=== PATIENT | female | born 1950 | race Hispanic/Latino ===

== ENCOUNTER → 2018-07-04 | Outpatient (CLI) | payer OTHER | END | disposition home or self-care (01) | LOC: OIH 10:53 | PROVIDERS: ATTEND Internal Medicine | DX: M19.042 Primary osteoarthritis, left hand (principal); M19.041 Primary osteoarthritis, right hand | CPT/HCPCS: 73130 ==

== ENCOUNTER → 2019-09-01 | Outpatient (CLI) | payer OTHER | END | disposition home or self-care (01) | LOC: SHCH 14:45 | PROVIDERS: ATTEND Internal Medicine Cardiovascular Disease | DX: I65.23 Occlusion and stenosis of bilateral carotid arteries (principal) | CPT/HCPCS: 93880 ==

== ENCOUNTER → 2019-09-18 | Outpatient (CLI) | payer OTHER | END | disposition home or self-care (01) | LOC: OIH 11:10 | PROVIDERS: ATTEND Internal Medicine Cardiovascular Disease | DX: Z13.6 Encounter for screening for cardiovascular disorders (principal) | CPT/HCPCS: 75571 ==

== ENCOUNTER → 2020-03-16 | Outpatient (CLI) | payer OTHER | END | disposition home or self-care (01) | LOC: RAH 12:05 | PROVIDERS: ATTEND Internal Medicine | DX: Z01.818 Encounter for other preprocedural examination (principal); R05 Cough; R06.02 Shortness of breath | CPT/HCPCS: 71046 ==

== ENCOUNTER → 2020-05-31 | Outpatient (CLI) | payer OTHER | END | disposition home or self-care (01) | LOC: RAH 15:07 | PROVIDERS: ATTEND Internal Medicine | DX: M19.042 Primary osteoarthritis, left hand (principal); M19.041 Primary osteoarthritis, right hand ==

== ENCOUNTER 2022-09-16 15:14 | Emergency (ER) | payer MEDICARE ==
[~2022-09-16] VITALS: Ht 152.4 cm; Wt 72.6 kg
[2022-09-16 15:43] VITALS: BP 197/77
[2022-09-16] MEDS ORDERED: ACET-2079 PO (17:54)
[2022-09-16] MEDS ORDERED: KETOROLAC 60 MG VIAL (30MG/ML) IM ONE (18:00)
[2022-09-16] MEDS ORDERED: HYDROCODONE/ACETAMINOPHEN 5/325 MG TAB PO ONE (18:00)
== END 2022-09-16 18:35 | disposition home or self-care (01) ==
LOC: EDH 15:14
DX: M25.562 Pain in left knee (principal); M25.561 Pain in right knee; E78.00 Pure hypercholesterolemia, unspecified; I10 Essential (primary) hypertension; K21.9 Gastro-esophageal reflux disease without esophagitis; Z79.1 Long term (current) use of non-steroidal anti-inflammatories (NSAID); Z85.3 Personal history of malignant neoplasm of breast
CPT/HCPCS: 99283; 96372; J1885

== ENCOUNTER 2023-02-21 18:06 | Observation (INO) | payer MEDICARE ==
[~2023-02-21] VITALS: Ht 148.6 cm; Wt 71.0 kg
[~2023-02-21 18:06] MED LIST: ACET-2079 PO
[2023-02-21 18:48] LABS: HEMATOCRIT 40.6 % (36-48); MEAN CORPUSCULAR HEMOGLOBIN 32.4 pg (27.0-33.0); MEAN CORPUSCULAR VOLUME 92.7 fL (79-99); RED BLOOD CELL COUNT(AUTO) 4.38 MIL/uL (4.00-5.50); RED CELL DISTRIBUTION WIDTH 12.2 % (11.0-15.5); WHITE BLOOD COUNT (AUTO) 7.2 K/uL (4.8-10.8)
[2023-02-21 19:09] LABS: ALBUMIN 3.9 g/dL (3.5-5.0); BILIRUBIN,TOTAL 0.8 mg/dL (0.2-1.0); CREATININE 1.1 mg/dL (0.5-1.5); TOTAL PROTEIN, SERUM 7.3 g/dL (6.0-8.3)
[2023-02-21 19:11] LABS: POTASSIUM 2.9 mmol/L (3.5-5.1)
[2023-02-21] MEDS ORDERED: POTASSIUM CHLORIDE 20MEQ/10ML 10 MEQ in 0.9%NACL 50ML 50 ML IV SCH (20:00)
[2023-02-21] MEDS ORDERED: KCL 20 MEQ ERTAB PO SCH (20:00)
[2023-02-21] MEDS ORDERED: IOHEXOL-350 75 ML VIAL IV ONE (22:53)
[2023-02-21 23:17] LABS: INR < 0.93 (0.85-1.15); PROTHROMBIN TIME 10.3 SEC (9.6-11.6)
[2023-02-21 23:19] LABS: PARTIAL THROMBOPLASTIN TIME 25.1 SEC (26.3-35.5)
[2023-02-21 23:22] LABS: CREATINE KINASE, TOTAL 137 U/L (21-232); LDL DIRECT 66 mg/dL (0-99)
[2023-02-21] MEDS ORDERED: POTASSIUM CHLORIDE 20MEQ/100ML 100 ML IV ONE (23:23)
[2023-02-22] MEDS ORDERED: POTASSIUM CHLORIDE 20MEQ/100ML 100 ML IV PRN ×2 (01:30→21:30)
[2023-02-22] MEDS ORDERED: MAGNESIUM 2GM PREMIX 50ML 50 ML IV PRN (01:30)
[2023-02-22] MEDS ORDERED: MORPHINE 4 MG SYG IV PRN (01:30)
[2023-02-22] MEDS ORDERED: 0.9%NACL 1000ML 1,000 ML IV SCH (01:30)
[2023-02-22] MEDS ORDERED: ONDANSETRON 4MG INJ IV PRN (01:30)
[2023-02-22] MEDS ORDERED: MORPHINE 2 MG SYG IV PRN (01:30)
[2023-02-22] MEDS ORDERED: HYDRALAZINE 20MG/ML VIAL IV ONE (04:30)
[2023-02-22 06:49] LABS: BASOPHILS # (AUTO) 0.02 K/uL (0.00-0.20); BASOPHILS % (AUTO) 0.4 % (0.0-5.0); EOSINOPHILS # (AUTO) 0.08 K/uL (0.00-0.70); EOSINOPHILS % (AUTO) 1.4 % (0.0-8.0); HEMATOCRIT 39.6 % (36-48); IMMATURE GRANULOCYTE ABSOLUTE 0.02 K/uL (0-1); LYMPHOCYTES # (AUTO) 1.6 K/uL (1.0-4.8); LYMPHOCYTES % (AUTO) 29.3 % (21.0-51.0); MEAN CORPUSCULAR HEMOGLOBIN 31.5 pg (27.0-33.0); MEAN CORPUSCULAR HGB CONC 33.8 g/dL (32.0-36.0); MEAN CORPUSCULAR VOLUME 93.2 fL (79-99); MONOCYTES # (AUTO) 0.6 K/uL (0.1-1.0); MONOCYTES % (AUTO) 10.5 % (3.0-13.0); NEUTROPHILS # (AUTO) 3.2 K/uL (1.8-7.7); PLATELET COUNT (AUTO) 195 K/uL (130-400); RED BLOOD CELL COUNT(AUTO) 4.25 MIL/uL (4.00-5.50); RED CELL DISTRIBUTION WIDTH 12.2 % (11.0-15.5); WHITE BLOOD COUNT (AUTO) 5.5 K/uL (4.8-10.8)
[2023-02-22 07:03] LABS: CREATININE 0.8 mg/dL (0.5-1.5); MAGNESIUM 2.1 mg/dL (1.80-2.40); PHOSPHORUS 3.2 mg/dL (2.5-4.9)
[2023-02-22] MEDS: FAMOTIDINE 20MG VIAL IV SCH (08:33)
[2023-02-22] MEDS: ATORVASTATIN 40 MG TABLET PO SCH (08:33)
[2023-02-22] MEDS: ASPIRIN 81MG CHEW TAB PO SCH (08:33)
[2023-02-22] MEDS ORDERED: NIFEDIPINE ER 30 MG TAB PO SCH (09:00)
[2023-02-22 09:03] LABS: APPEARANCE,URINE CLEAR (CLEAR); BILIRUBIN,URINE NEGATIVE (NEGATIVE); COLOR,URINE COLORLESS (YELLOW); GLUCOSE, URINE (UA) NEGATIVE (NEGATIVE); KETONES,URINE NEGATIVE (NEGATIVE); LEUKOCYTE ESTERASE ,URINE 250 Leu/uL (NEGATIVE); NITRATE,URINE NEGATIVE (NEGATIVE); OCCULT BLOOD,URINE NEGATIVE (NEGATIVE); PROTEIN,URINE NEGATIVE (NEGATIVE); UROBILINOGEN,URINE 0.2 mg/dL (0.2-1.0)
[2023-02-22 09:09] LABS: ADD UA MICROSCOPIC YES
[2023-02-22 09:12] LABS: SQUAMOUS EPITHELIAL CELL,UR RARE /HPF (0-2)
[2023-02-22] MEDS ORDERED: LABETALOL 20MG VIAL IV PRN (19:30)
[2023-02-22] MEDS ORDERED: HYDROCHLOROTHIAZIDE 25 MG TABLET PO SCH (19:30)
[2023-02-22] MEDS: LOSARTAN 25 MG TABLET PO SCH ×2 (20:50→21:00)
[2023-02-22] MEDS: CLOPIDOGREL 75MG TAB PO SCH (20:51)
[2023-02-22] MEDS ORDERED: POTASSIUM CHLORIDE 10% ELIXIR 20 MEQ/15 ML UDCUP PO PRN (21:30)
[2023-02-22 22:00] VITALS: BP 160/72; PULSE 71; RESP 20
[2023-02-22] MEDS ORDERED: FLUT16H NASAL (22:36)
[2023-02-22] MEDS ORDERED: ROSU40TA21 PO (22:36)
[2023-02-22] MEDS ORDERED: CYCL1DRO14 OP (22:36)
[2023-02-22] MEDS ORDERED: ANAS1TAB49 PO (22:36)
[2023-02-22] MEDS ORDERED: OMEP20TA20 PO (22:36)
[2023-02-22] MEDS ORDERED: POTA-364 PO (22:36)
[2023-02-22] MEDS ORDERED: LORA10TA7 PO (22:36)
[2023-02-22] MEDS ORDERED: LOSA25TA41 PO (22:36)
[2023-02-22] MEDS ORDERED: CELE200 PO (22:36)
[2023-02-22] MEDS ORDERED: HYDR25TA PO (22:36)
[2023-02-22] MEDS: KCL 20 MEQ ERTAB PO PRN ×2 (22:39→23:32)
[2023-02-23] MEDS: KCL 20 MEQ ERTAB PO PRN (01:44)
[2023-02-23 03:37] VITALS: BP 133/67; PULSE 72; RESP 16
[2023-02-23 05:17] LABS: BASOPHILS # (AUTO) 0.02 K/uL (0.00-0.20); BASOPHILS % (AUTO) 0.4 % (0.0-5.0); EOSINOPHILS # (AUTO) 0.12 K/uL (0.00-0.70); EOSINOPHILS % (AUTO) 2.4 % (0.0-8.0); HEMATOCRIT 38.9 % (36-48); IMMATURE GRANULOCYTE ABSOLUTE 0.01 K/uL (0-1); LYMPHOCYTES # (AUTO) 1.4 K/uL (1.0-4.8); LYMPHOCYTES % (AUTO) 27.5 % (21.0-51.0); MEAN CORPUSCULAR HEMOGLOBIN 31.6 pg (27.0-33.0); MEAN CORPUSCULAR HGB CONC 33.4 g/dL (32.0-36.0); MEAN CORPUSCULAR VOLUME 94.6 fL (79-99); MONOCYTES # (AUTO) 0.5 K/uL (0.1-1.0); MONOCYTES % (AUTO) 10.5 % (3.0-13.0); PLATELET COUNT (AUTO) 198 K/uL (130-400); RED BLOOD CELL COUNT(AUTO) 4.11 MIL/uL (4.00-5.50); RED CELL DISTRIBUTION WIDTH 12.4 % (11.0-15.5); WHITE BLOOD COUNT (AUTO) 5.1 K/uL (4.8-10.8)
[2023-02-23 05:35] LABS: CREATININE 0.9 mg/dL (0.5-1.5); PHOSPHORUS 3.6 mg/dL (2.5-4.9); POTASSIUM 4.2 mmol/L (3.5-5.1)
[2023-02-23 05:40] LABS: HEMOGLOBIN A1C 6.3 % (4.0-6.0)
[2023-02-23 07:20] VITALS: BP 130/56; PULSE 55; RESP 20
[2023-02-23 08:30] VITALS: O2SAT 100
[2023-02-23] MEDS ORDERED: HYDROCHLOROTHIAZIDE 25 MG TABLET PO SCH (09:00)
[2023-02-23] MEDS ORDERED: ASPI-1005 PO (09:24)
[2023-02-23] MEDS ORDERED: CLOP-31 PO (09:24)
[2023-02-23] MEDS ORDERED: ATOR40TA69 PO (09:24)
[2023-02-23] MEDS ORDERED: FAMO10VI2 IV (09:24)
[2023-02-23] MEDS: CLOPIDOGREL 75MG TAB PO SCH (10:21)
[2023-02-23] MEDS: ATORVASTATIN 40 MG TABLET PO SCH (10:21)
[2023-02-23] MEDS: FAMOTIDINE 20MG VIAL IV SCH (10:21)
[2023-02-23] MEDS: LOSARTAN 25 MG TABLET PO SCH (10:22)
[2023-02-23] MEDS: ASPIRIN 81MG CHEW TAB PO SCH (10:22)
[2023-02-23 11:49] VITALS: BP 150/65; PULSE 60; RESP 20
[2023-02-23 15:10] VITALS: BP 173/64; PULSE 60; RESP 21
[2023-02-23 19:42] VITALS: BP 143/63; PULSE 56; RESP 20
== END 2023-02-23 19:35 | disposition home or self-care (01) ==
LOC: EDH 18:06 → EDHIP 02-22 01:29 → INTOOBSV 02-22 01:29 → 4BH 02-22 22:05
PROVIDERS: ADMIT Internal Medicine; ATTEND Internal Medicine
DX: I63.511 Cerebral infarction due to unspecified occlusion or stenosis of right middle cerebral artery (principal); E87.6 Hypokalemia; I10 Essential (primary) hypertension; E78.5 Hyperlipidemia, unspecified; M19.90 Unspecified osteoarthritis, unspecified site; K21.9 Gastro-esophageal reflux disease without esophagitis; E78.00 Pure hypercholesterolemia, unspecified; F10.10 Alcohol abuse, uncomplicated; E11.9 Type 2 diabetes mellitus without complications; Z85.3 Personal history of malignant neoplasm of breast; Z92.21 Personal history of antineoplastic chemotherapy; Z79.82 Long term (current) use of aspirin; Z79.02 Long term (current) use of antithrombotics/antiplatelets; Z79.899 Other long term (current) drug therapy; Z51.5 Encounter for palliative care
CPT/HCPCS: 96365; 99285; 82550; 83721; 84484 ×2; 80053; 83880; 85027; 85610; 85730; 82948; 36415 ×3; 71045; 70450; 70496; 70498; 93005 ×2; 96361; 96366; 96375; 83735 ×2; 84100 ×2; 84132; 80048 ×2; 85025 ×2; 87088; 81001; 93880; 70551; 92522; 92610; 96376; 83036; 80061; 93306; 93356; 97161; 97116; J3480 ×3; Q9967; J3490 ×2; J7030; J0360; G0378 ×11; 96374; G8980-CI; G8983-CI

== ENCOUNTER 2023-10-10 05:48 | Observation (INO) | payer MEDICARE ==
[2023-10-08 12:42] LABS: BASOPHILS # (AUTO) 0.02 K/uL (0.00-0.20); BASOPHILS % (AUTO) 0.3 % (0.0-5.0); EOSINOPHILS # (AUTO) 0.05 K/uL (0.00-0.70); EOSINOPHILS % (AUTO) 0.7 % (0.0-8.0); HEMATOCRIT 39.3 % (36-48); IMMATURE GRANULOCYTE ABSOLUTE 0.02 K/uL (0-1); LYMPHOCYTES # (AUTO) 1.7 K/uL (1.0-4.8); MEAN CORPUSCULAR HGB CONC 34.4 g/dL (32.0-36.0); MEAN CORPUSCULAR VOLUME 90.1 fL (79-99); MONOCYTES # (AUTO) 0.6 K/uL (0.1-1.0); MONOCYTES % (AUTO) 8.4 % (3.0-13.0); NEUTROPHILS # (AUTO) 4.3 K/uL (1.8-7.7); NEUTROPHILS % (AUTO) 64.3 % (40.0-77.0); PLATELET COUNT (AUTO) 213 K/uL (130-400); RED BLOOD CELL COUNT(AUTO) 4.36 MIL/uL (4.00-5.50); RED CELL DISTRIBUTION WIDTH 13.1 % (11.0-15.5); WHITE BLOOD COUNT (AUTO) 6.7 K/uL (4.8-10.8)
[2023-10-08 12:43] VITALS: BP 189/75; PULSE 65; RESP 18
[2023-10-08 12:49] LABS: ALBUMIN 4.4 g/dL (3.5-5.0); CREATININE 0.9 mg/dL (0.5-1.0); POTASSIUM 3.1 mmol/L (3.5-5.1)
[2023-10-08 12:50] LABS: INR <= 0.93 (0.85-1.15); PROTHROMBIN TIME 10.9 SEC (9.6-11.6)
[2023-10-08 12:52] LABS: PARTIAL THROMBOPLASTIN TIME 28.1 SEC (26.3-35.5)
[2023-10-08 13:14] LABS: APPEARANCE,URINE CLEAR (CLEAR); BILIRUBIN,URINE NEGATIVE (NEGATIVE); COLOR,URINE YELLOW (YELLOW); GLUCOSE, URINE (UA) NEGATIVE (NEGATIVE); KETONES,URINE NEGATIVE (NEGATIVE); LEUKOCYTE ESTERASE ,URINE NEGATIVE Leu/uL (NEGATIVE); NITRATE,URINE NEGATIVE (NEGATIVE); OCCULT BLOOD,URINE TRACE-INTACT (NEGATIVE); PH,URINE 7.5 (5.0-8.0); PROTEIN,URINE TRACE mg/dL (NEGATIVE); UROBILINOGEN,URINE 0.2 mg/dL (0.2-1.0)
[2023-10-08 13:21] LABS: ADD UA MICROSCOPIC NO
[2023-10-08 13:38] LABS: BACTERIA,URINE Rare /HPF (None Seen); SQUAMOUS EPITHELIAL CELL,UR 0-2 /HPF (0-2); WBC,URINE 0-1 /HPF (0-1)
[2023-10-10] VITALS (30 sets, daily range): BP systolic 120–219; BP diastolic 43–88; PULSE 57–81; RESP 11–19; O2SAT 96
[~2023-10-10] VITALS: Ht 149.9 cm; Wt 72.4 kg
[~2023-10-10 05:48] MED LIST changes: -ACET-2079 PO; +ACET-2743 PO; +AMLO-257 PO; +ANAS1TAB49 PO; +CALC-1125 PO; +CHOL200074 PO; +CLOP-31 PO; +GABA-529 PO; +HYPROMELLOSE OU; +MONT-39 PO; +OLME40TA18 PO; +OMEP20TA20 PO; +ROSU40TA21 PO; +TYLENOL ARTHRITIS PO; +VITA-328 PO
[2023-10-10] MEDS ORDERED: LACTATED RINGERS 1000ML 1,000 ML IV ONE (06:23)
[2023-10-10] MEDS ORDERED: FAMOTIDINE 20MG VIAL IV ONE (06:43)
[2023-10-10] MEDS ORDERED: ACETAMINOPHEN 1,000 MG/100 ML VIAL IV ONE (06:43)
[2023-10-10] MEDS ORDERED: ROPIVACAINE 0.5% 5MG/ML 30ML ONE ×2 (06:47→09:42)
[2023-10-10] MEDS ORDERED: LIDOCAINE PF 100MG/5ML (2%) SYRINGE 5ML ONE (06:52)
[2023-10-10] MEDS ORDERED: FENTANYL CITRATE PF 50 MCG/1 ML 2ML VIAL ONE (06:53)
[2023-10-10] MEDS ORDERED: ROCURONIUM BROMIDE 10MG/1ML 5ML VL ONE (06:53)
[2023-10-10] MEDS ORDERED: PROPOFOL 10 MG/ML 20ML VIAL IV ONE (06:53)
[2023-10-10] MEDS: POTASSIUM CHLORIDE 10MEQ/100ML 100 ML IV SCH (07:26)
[2023-10-10] MEDS ORDERED: KETAMINE 50MG/ML SYRINGE 50 MG/ML DISP.SYRIN ONE (09:42)
[2023-10-10] MEDS: CEFAZOLIN SODIUM 2 GM VIAL ONE (10:00)
[2023-10-10] MEDS: KETOROLAC 30MG VIAL (30MG/ML) ONE (10:45)
[2023-10-10] MEDS: ROPIVACAINE 0.5% 5MG/ML 30ML ONE (10:46)
[2023-10-10] MEDS ORDERED: HYDROMORPHONE 1 MG INJ ONE (10:58)
[2023-10-10] MEDS ORDERED: KETOROLAC 15MG/ML VIAL (15MG/ML) IV PRN (12:00)
[2023-10-10] MEDS ORDERED: DiphenhydrAMINE HCL 50 MG/ML VIAL IVP PRN (12:00)
[2023-10-10] MEDS ORDERED: TRAMADOL HCL 50 MG TABLET PO PRN (12:00)
[2023-10-10] MEDS ORDERED: CYCLOBENZAPRINE HCL 10 MG TABLET PO PRN (12:00)
[2023-10-10] MEDS ORDERED: POTASSIUM CHLORIDE 20MEQ/100ML 100 ML IV PRN (12:00)
[2023-10-10] MEDS ORDERED: POTASSIUM CHLORIDE 10% ELIXIR 20 MEQ/15 ML UDCUP PO PRN (12:00)
[2023-10-10] MEDS ORDERED: FERROUS FUMARATE 324 MG TABLET PO PRN (12:00)
[2023-10-10] MEDS ORDERED: LABETALOL 20MG SYG IV PRN (13:30)
[2023-10-10] MEDS ORDERED: HYDRALAZINE 20MG/ML VIAL IV PRN (13:30)
[2023-10-10] MEDS: ONDANSETRON 4MG INJ ONE (13:35)
[2023-10-10] MEDS: HYDRALAZINE 20MG/ML VIAL ONE (13:35)
[2023-10-10] MEDS: HYDROMORPHONE 1 MG INJ ONE (13:36)
[2023-10-10] MEDS: ONDANSETRON 4MG INJ IVP PRN (14:40)
[2023-10-10] MEDS ORDERED: ONDANSETRON 4MG INJ IVP PRN (15:00)
[2023-10-10] MEDS: METOCLOPRAMIDE 10 MG/2 ML VIAL ONE (15:03)
[2023-10-10] MEDS: FAMOTIDINE 20MG VIAL IV ONE (15:03)
[2023-10-10] MEDS: TRAMADOL HCL 50 MG TABLET ONE (16:03)
[2023-10-10] MEDS: PROMETHAZINE HCL 25 MG/ML 1ML AMPULE IM ONE (16:04)
[2023-10-10 17:05] LABS: ALBUMIN 3.5 g/dL (3.5-5.0); CREATININE 0.9 mg/dL (0.5-1.0); POTASSIUM 3.1 mmol/L (3.5-5.1)
[2023-10-10 17:18] LABS: BILIRUBIN,TOTAL 0.9 mg/dL (0.2-1.0); MAGNESIUM 1.9 mg/dL (1.80-2.40); THYROID STIMULATING HORMONE 0.57 uIU/mL (0.36-3.74); TOTAL PROTEIN, SERUM 6.6 g/dL (6.0-8.3)
[2023-10-10] MEDS: CEFAZOLIN SODIUM 2 GM VIAL IVPB SCH (18:45)
[2023-10-10] MEDS: KCL 20 MEQ ERTAB PO PRN (20:40)
[2023-10-10] MEDS: ATORVASTATIN 40 MG TABLET PO SCH (20:42)
[2023-10-10] MEDS: DOCUSATE SODIUM 100 MG CAP PO SCH (20:43)
[2023-10-10] MEDS: AMLODIPINE 5 MG TAB PO SCH (20:43)
[2023-10-10] MEDS: GABAPENTIN 100 MG CAPSULE PO SCH (20:43)
[2023-10-10] MEDS: KETOROLAC 15MG/ML VIAL (15MG/ML) IV SCH (20:44)
[2023-10-10] MEDS: 0.9%NACL 1000ML 1,000 ML IV SCH (20:45)
[2023-10-10] MEDS: Vitamin D3 50 MCG PO SCH (21:00)
[2023-10-10] MEDS ORDERED: NON-FORMULARY MEDICATION 1 EACH (Rosuvastatin Calcium 40 MG) PO SCH (21:00)
[2023-10-11] MEDS: MAGNESIUM 2GM PREMIX 50ML 50 ML IV SCH (03:38)
[2023-10-11 04:01] VITALS: BP 153/64; PULSE 76; RESP 17
[2023-10-11 05:27] LABS: BASOPHILS # (AUTO) 0.02 K/uL (0.00-0.20); BASOPHILS % (AUTO) 0.2 % (0.0-5.0); HEMATOCRIT 31.2 % (36-48); IMMATURE GRANULOCYTE ABSOLUTE 0.03 K/uL (0-1); LYMPHOCYTES # (AUTO) 1.1 K/uL (1.0-4.8); LYMPHOCYTES % (AUTO) 10.9 % (21.0-51.0); MEAN CORPUSCULAR HEMOGLOBIN 31.2 pg (27.0-33.0); MEAN CORPUSCULAR HGB CONC 34.3 g/dL (32.0-36.0); MONOCYTES # (AUTO) 1.1 K/uL (0.1-1.0); MONOCYTES % (AUTO) 10.6 % (3.0-13.0); NEUTROPHILS # (AUTO) 8.1 K/uL (1.8-7.7); PLATELET COUNT (AUTO) 169 K/uL (130-400); RED BLOOD CELL COUNT(AUTO) 3.43 MIL/uL (4.00-5.50); RED CELL DISTRIBUTION WIDTH 13.4 % (11.0-15.5); WHITE BLOOD COUNT (AUTO) 10.3 K/uL (4.8-10.8)
[2023-10-11 07:04] LABS: ALBUMIN 3.2 g/dL (3.5-5.0); BILIRUBIN,TOTAL 1.3 mg/dL (0.2-1.0); CREATININE 0.9 mg/dL (0.5-1.0); MAGNESIUM 3.6 mg/dL (1.80-2.40); POTASSIUM 3.3 mmol/L (3.5-5.1); TOTAL PROTEIN, SERUM 6.2 g/dL (6.0-8.3)
[2023-10-11] MEDS: LOSARTAN 100 MG TABLET PO SCH (08:35)
[2023-10-11] MEDS: ASPIRIN 325MG EC TAB PO SCH (08:35)
[2023-10-11] MEDS: VITAMIN B COMPLEX 1 CAPSULE PO SCH (08:35)
[2023-10-11] MEDS: PANTOPRAZOLE 40 MG TAB DR PO SCH (08:35)
[2023-10-11] MEDS: POLYETHYLENE GLYCOL 3350 17 GM POWD.PACK PO SCH (08:36)
[2023-10-11] MEDS: HYDROCODONE/ACETAMINOPHEN 5/325 MG TAB PO PRN (08:43)
[2023-10-11 08:49] VITALS: BP 173/74; PULSE 72; RESP 16
[2023-10-11] MEDS ORDERED: NON-FORMULARY MEDICATION 1 EACH (Olmesartan Medoxomil 40 MG) PO SCH (09:00)
[2023-10-11] MEDS ORDERED: NON-FORMULARY MEDICATION 1 EACH (Omeprazole 20 MG) PO SCH (09:00)
[2023-10-11] MEDS ORDERED: VITAMIN B COMPLEX PO SCH (09:00)
[2023-10-11 09:45] VITALS: O2SAT 98
[2023-10-11 11:38] VITALS: BP 140/69; PULSE 70; RESP 18
[2023-10-11] MEDS ORDERED: KETOROLAC 15MG/ML VIAL (15MG/ML) IV PRN (12:00)
[2023-10-11 20:00] VITALS: BP 148/62; PULSE 74; RESP 20; O2SAT 97
[2023-10-11] MEDS: BALSAM PERU/CASTOR OIL 60 GM TUBE TP SCH (20:09)
[2023-10-12] VITALS: BP 150/64; PULSE 72; RESP 20
[2023-10-12 04:00] VITALS: BP 142/59; PULSE 72; RESP 20
[2023-10-12 07:47] VITALS: BP 142/64; PULSE 68; RESP 18
[2023-10-12 08:00] VITALS: O2SAT 97
[2023-10-12] MEDS: CALCIUM CARB 500MG PO PRN (08:28)
[2023-10-12 11:26] VITALS: BP 120/60; PULSE 73; RESP 18
[2023-10-12] MEDS ORDERED: HYDR-4060 PO (13:59)
[2023-10-12] MEDS ORDERED: CYCL-309 PO (13:59)
[2023-10-12] MEDS ORDERED: DOCU-116 PO (13:59)
[2023-10-13] MEDS ORDERED: BISACODYL 10 MG SUPP.RECT RC PRN (12:00)
== END 2023-10-12 18:40 ==
LOC: DAH 05:48 → DAHIP 05:49 → DAH 05:49 → 4DH 17:00
PROVIDERS: ADMIT Student in an Organized Health Care Education/Training Program; ATTEND Student in an Organized Health Care Education/Training Program
DX: M17.11 Unilateral primary osteoarthritis, right knee (principal); G89.18 Other acute postprocedural pain; D62 Acute posthemorrhagic anemia; I97.3 Postprocedural hypertension; I16.0 Hypertensive urgency; I10 Essential (primary) hypertension; E87.6 Hypokalemia; E78.5 Hyperlipidemia, unspecified; K21.9 Gastro-esophageal reflux disease without esophagitis; G62.9 Polyneuropathy, unspecified; Z85.828 Personal history of other malignant neoplasm of skin; Z86.73 Personal history of transient ischemic attack (TIA), and cerebral infarction without residual deficits; Z86.2 Personal history of diseases of the blood and blood-forming organs and certain disorders involving the immune mechanism; Z79.899 Other long term (current) drug therapy; Z85.3 Personal history of malignant neoplasm of breast
CPT/HCPCS: 82040; 80048; 85025 ×2; 85610; 85730; 87088; 84134; 86140; 81003; 81001; 36415 ×3; 87641; 27447; 96365; 96375; 96367 ×2; 64447; 84443; 82550; 83735 ×2; 84484; 84132; 80053 ×2; 73560; 97161; 97530 ×6; 93005; 96376; 96366; 82948; 97116 ×4; G0378 ×47; A4215 ×3; J7120; J3490 ×2; J1170 ×2; J2550; J0360; J2405; J1885 ×3; J2765; J2795 ×2; J3480; J0690 ×3; G0168; C1776 ×2; A4649 ×2; A4930; C1713; A6255; A5120; A4223 ×2; A4657; A4213; A4335; A4222; A4221; A4663; A4216; J3475; J2001; J2704; J3010

== ENCOUNTER 2024-06-09 05:45 | Observation (INO) | payer MEDICARE ==
[2024-06-06 12:19] LABS: BASOPHILS # (AUTO) 0.02 K/uL (0.00-0.20); BASOPHILS % (AUTO) 0.4 % (0.0-5.0); EOSINOPHILS # (AUTO) 0.14 K/uL (0.00-0.70); EOSINOPHILS % (AUTO) 2.5 % (0.0-8.0); HEMATOCRIT 37.7 % (36-48); IMMATURE GRANULOCYTE ABSOLUTE 0.01 K/uL (0-1); LYMPHOCYTES # (AUTO) 1.7 K/uL (1.0-4.8); LYMPHOCYTES % (AUTO) 30.4 % (21.0-51.0); MEAN CORPUSCULAR HEMOGLOBIN 31.7 pg (27.0-33.0); MEAN CORPUSCULAR HGB CONC 34.2 g/dL (32.0-36.0); MEAN CORPUSCULAR VOLUME 92.6 fL (79-99); MONOCYTES # (AUTO) 0.5 K/uL (0.1-1.0); MONOCYTES % (AUTO) 9.5 % (3.0-13.0); NEUTROPHILS # (AUTO) 3.3 K/uL (1.8-7.7); PLATELET COUNT (AUTO) 279 K/uL (130-400); RED BLOOD CELL COUNT(AUTO) 4.07 MIL/uL (4.00-5.50); RED CELL DISTRIBUTION WIDTH 12.3 % (11.0-15.5); WHITE BLOOD COUNT (AUTO) 5.7 K/uL (4.8-10.8)
[2024-06-06 12:29] LABS: PARTIAL THROMBOPLASTIN TIME 27.2 SEC (26.3-35.5)
[2024-06-06 12:33] LABS: CREATININE 0.9 mg/dL (0.5-1.0); POTASSIUM 3.7 mmol/L (3.5-5.1)
[2024-06-06 12:42] LABS: APPEARANCE,URINE CLEAR (CLEAR); BILIRUBIN,URINE NEGATIVE (NEGATIVE); COLOR,URINE COLORLESS (YELLOW); GLUCOSE, URINE (UA) NEGATIVE (NEGATIVE); KETONES,URINE NEGATIVE (NEGATIVE); LEUKOCYTE ESTERASE ,URINE 75 Leu/uL (NEGATIVE); NITRATE,URINE NEGATIVE (NEGATIVE); PROTEIN,URINE 10 mg/dL (NEGATIVE); UROBILINOGEN,URINE 0.2 mg/dL (0.2-1.0)
[2024-06-06 12:55] LABS: ADD UA MICROSCOPIC YES
[2024-06-06 12:59] LABS: RBC,URINE 0-1 /HPF (0-1); SQUAMOUS EPITHELIAL CELL,UR RARE /HPF (0-2)
[2024-06-06 13:09] VITALS: BP 176/68; PULSE 65; RESP 17; TEMP 97.3
[2024-06-06 13:19] LABS: INR 0.97 (0.85-1.15); PROTHROMBIN TIME 10.9 SEC (9.6-11.6)
--- NOTE | 2024-06-06 13:39 | NUR ---
VERIFY PT REPORTED SHE WAS INSTRUCTED TO HOLD ANASTOZOLE.. CALLED DR BRADEN TO VERIFY. PER MD PT CAN CONTINUE MED. PT NOTIFIED AND VOICED UNDERSTANDING
[2024-06-09] VITALS (23 sets, daily range): BP systolic 119–168; BP diastolic 54–72; PULSE 54–72; RESP 15–19; TEMP 97.4–98.2
[~2024-06-09] VITALS: Ht 149.9 cm; Wt 71.7 kg
[~2024-06-09 05:45] MED LIST changes: -ACET-2743 PO; +AZEL137S11 NS; -CALC-1125 PO; -CHOL200074 PO; +MELO-108 PO; -MONT-39 PO; -OMEP20TA20 PO; +POLY10DR5 OP; -ROSU40TA21 PO; +ROSU40TA88 PO; -TYLENOL ARTHRITIS PO; -VITA-328 PO; +[UNRECOGNIZED DRUG - CODE] DT
[2024-06-09] MEDS ORDERED: ROPivacaine 0.5% 5MG/ML 30ML ONE ×2 (06:41→06:49)
[2024-06-09] MEDS ORDERED: ketaMINE 50MG/ML SYRINGE 50 MG/ML DISP.SYRIN ONE (06:41)
[2024-06-09] MEDS ORDERED: proPOFol 10 MG/ML 20ML VIAL IV ONE (06:49)
[2024-06-09] MEDS ORDERED: ketOROlac 30MG VIAL (30MG/ML) ONE (06:49)
[2024-06-09] MEDS ORDERED: LIDOCAINE HCL-MPF 2% 10ML AMP IJ ONE (06:49)
[2024-06-09] MEDS ORDERED: FENTanyl CITRate PF 50 MCG/1 ML 2ML VIAL ONE (06:50)
[2024-06-09] MEDS ORDERED: rocuRONium bROMide 10MG/1ML 5ML VL ONE (06:50)
[2024-06-09] MEDS: ceFAZolin SODIUM 2 GM VIAL ONE (06:52)
[2024-06-09] MEDS: LACTATED RINGERS 1000ML 1,000 ML IV ONE (06:52)
[2024-06-09] MEDS ORDERED: dexaMETHasone SOD PHOSPHATE 10MG/ML 1ML VIAL ONE (07:22)
[2024-06-09] MEDS ORDERED: ondanSETRON 4MG INJ ONE (07:22)
[2024-06-09] MEDS ORDERED: PoTASSium chl 10% ELIXIR 20MEQ 20 MEQ/15 ML UDCUP PO PRN (07:30)
[2024-06-09] MEDS ORDERED: ondanSETRON 4MG INJ IVP PRN (07:30)
[2024-06-09] MEDS ORDERED: CALCIUM CARB 500MG PO PRN (07:30)
[2024-06-09] MEDS ORDERED: PoTASSium chloRIDE 20MEQ/100ML 100 ML IV PRN (07:30)
[2024-06-09] MEDS: TRANEXAMIC ACID 1000MG/10ML ONE (07:35)
[2024-06-09] MEDS: TRIMETHOPRIM OP SCH (08:00)
[2024-06-09] MEDS: POLYMYXIN B SULF OP SCH (08:00)
[2024-06-09] MEDS ORDERED: NEOSTIGMINE METHYLSULFATE 1MG/ML IV ONE (08:48)
[2024-06-09] MEDS ORDERED: GLYCOPYRROLATE 0.2 MG/ML 5 ML VIAL ONE (08:48)
[2024-06-09] MEDS: SODIUM FLUORIDE PO SCH (09:00)
[2024-06-09] MEDS: amLODIPine 5 MG TAB PO SCH (09:00)
[2024-06-09] MEDS: HYPROMELLOSE OU SCH (09:00)
[2024-06-09] MEDS: LoSARTan 100 MG TABLET PO SCH (09:00)
[2024-06-09] MEDS: GABApentin 100 MG CAPSULE PO SCH (09:00)
[2024-06-09] MEDS: ASPIRIN 325MG TAB PO SCH (09:00)
[2024-06-09] MEDS: doCUSate SODIUM 100 MG CAP PO SCH (09:00)
[2024-06-09] MEDS: polyETHYLene GLYCol 3350 17 GM POWD.PACK PO SCH (09:00)
[2024-06-09] MEDS: (Azelastine HCl 1 SPRAY) NASAL SCH (09:00)
[2024-06-09] MEDS: (Anastrozole (Arimidex) 1 MG) PO SCH (09:00)
--- NOTE | 2024-06-09 09:15 | OP ---
Operative Note: DATE OF PROCEDURE: 06/09/24 PREOPERATIVE DIAGNOSIS: Left knee osteoarthritis. POSTOPERATIVE DIAGNOSIS: Left knee osteoarthritis. PROCEDURE PERFORMED: Left knee total knee arthroplasty. SURGEON: Hali Headley MD REAL ESTATE LOAN PROCESSOR: Clinton Steward and Nichole Batres. ANESTHESIA: General with adductor canal block. ANESTHESIA: VALDEMAR Tavarez. ESTIMATED BLOOD LOSS: 50cc. COMPLICATIONS: None. DRAINS: None. SPECIMENS REMOVED: resected bone. Not sent to pathology. IMPLANTS: [employer] II BCS size 3 Oxinium femur, size 3 tibial base plate, 32 x 9 mm patella, 13 mm polyethylene STATEMENT OF MEDICAL NECESSITY: The patient is a 74-year-old female who suffers from left knee osteoarthritis failing conservative management. After discussion of the risks, benefits, and alternatives with the patient, they voluntarily agreed to undergo the aforementioned procedure. DESCRIPTION OF PROCEDURE: Patient was properly identified in the preoperative holding area. Surgical site marking was verified and surgery consent reviewed. The patient was then taken to the operating room and placed in supine position on the OR table. After induction of general anesthesia, preoperative antibiotics were given, all bony prominences were well-padded, and a well padded tourniquet was applied but not inflated at this time. The left lower extremity was then prepped and draped in usual sterile fashion. Surgical time out was done verifying correct surgery, side, site, and location to be performed. We then began the procedure by exsanguinating the limb using an Esmarch and inflating the tourniquet to 350 mmHg. At this point, we made an anterior midline incision using a 10 blade, coming down sharply the level of the fascia. Skin flaps were elevated medially and laterally. We then obtained a clean 10 blade and performed a standard medial parapatellar arthrotomy. We excised the infrapatellar fat pad. We performed our soft tissue releases off of the tibia. We transected the ACL and removed the anterior portion of the medial & lateral meniscus. We then brought the knee into hyperflexion with the patella everted. We used our entry reamer to enter the femoral canal. We then placed our intramedullary cutting guide for our distal femoral cutting block. We then performed our distal femoral osteotomy ensuring appropriate rotation and removed the bony wafer. We then removed these pins and block and then used jig 2 to size the distal femur with the after mentioned size found. We then placed our 5-in-1 cutting block in 3 degrees of external rotation and took our 5 cuts ensuring to protect the patellar tendon and the collateral ligaments. We then removed the cutting block and our bony fragments using a curved osteotome. We then placed our PCL retractor subluxating the tibia anteriorly. Using an extra medullary tibial cutting guide, we hung the block for our proximal tibial cut taking 2 mm off the more diseased portion. Prior to pinning this block in place, we ensured appropriate varus/valgus alignment and posterior slope similar to the [place] slope of the patient's knee. We then performed our proximal ti bial osteotomy and removed the bony wafer using Bovie electrocautery to release any remaining soft tissue attachments. We then used our tibial sizing paddle and checked once more for varus & valgus alignment and found this to be appropriate. At this point, we pinned our tibial paddle in place. We then removed the PCL retractor and subluxated the tibia posteriorly while we placed our femoral trial component. We then finished preparing the notch with the reamer and box chisel. The notch portion of the trial femoral component was then placed. A posterior stabilized polyethylene, size 9 trial was placed. This was immediately increased up to a size 12 due to laxity with varus and valgus stressing. The knee was then taken through range of motion and found to have stable full range of motion. We then placed a bump under the ankle and everted the patella to perform our freehand cut of the undersurface the patella. We then sized our patella and reamed to the lug holes for this. We placed our trial patellar component and begin to take the knee through range of motion. The patella had significant lateral tracking so we performed a lateral release. With approximating the soft tissues with a towel clip, the patellar tracking improved At this point we began removing our trial components and punched the tibial keel prior to removing our tibial trial component. Final components were opened and cement was mixed on the back table while we injected local cocktail in the posterior capsule. We then thoroughly irrigated out the bone and dried the bony surfaces. We cemented our tibial component in place ensuring to remove excess cement and placed our trial polyethylene. We then cemented our femoral component in place once again taking time to ensure excess cement was removed leg was brought into full extension to help squeeze the excess cement from around the femoral component. We then brought the knee back in a flexion to remove this portion of the cement at this point we placed the ankle in a bump thoroughly irrigated off the patellar component and cemented our patellar component in standard fashion again removing excess cement. While we waited for the cement to cure, we thoroughly irrigated out the wound with normal saline. Once our cement had cured, we took the knee through a range of motion and found full and stable range of motion. We then elected to use the size 13 polyethylene and removed our trial polyethylene. We impacted our final polyethylene component in place in standard fashion and took the knee through a range of motion check once more. This was satisfactory so we began to repair the arthrotomy using #1 Vicryl in interrupted [id number] fashion. Subcutaneous tissue was repaired using 2-0 Vicryl. Running subcuticular 3-0 Monocryl stitch with Dermabond placed over this for the skin. We then applied a foam barrier dressing and a pressure dressing consisting of 4 x 4's fluffs and an Jin wrap. The tourniquet was then deflated. Patient was awakened from anesthesia, and they were taken to the recovery room in stable condition. HALI HEADLEY MD Jun 09, 2024 09:15
[2024-06-09] MEDS: ketOROlac 15MG/ML VIAL (15MG/ML) IV SCH (09:36)
[2024-06-09] MEDS: ketOROlac 15MG/ML VIAL (15MG/ML) ONE (09:37)
--- NOTE | 2024-06-09 09:46 | HMCIMG ---
KNEE/PATELLA 1-2VWS LT HISTORY: Post left total knee arthroplasty COMPARISON: None TECHNIQUE: 2 images of left knee were obtained. FINDINGS: Total left knee arthroplasty changes are seen. There is no acute displaced fracture or dislocation. There is soft tissue swelling. There is soft tissue emphysema consistent. Changes. Degenerative changes are seen. IMPRESSION: 1. Findings as described above.
[2024-06-09] MEDS: acetaMINOPHEN 100 ML ONE (10:55)
[2024-06-09] MEDS: FAMOTIDINE 20MG VIAL IV ONE (10:56)
[2024-06-09] MEDS: 0.9%NACL 1000ML 1,000 ML IV SCH (11:09)
[2024-06-09] MEDS ORDERED: ceFAZolin SODIUM 2 GM VIAL IVP SCH (12:30)
[2024-06-09] MEDS: ceFAZolin SODIUM 2 GM VIAL IVP SCH (14:41)
--- NOTE | 2024-06-09 15:59 | NUR ---
DCP CM MET WITH PT AND BOYFRIEND IN ROOM ASSESSMENT DONE. PATIENT IS INDEPENDENT PRIOR TO SURGERY, LIVES AT HOME WITH BOYFRIEND/FISH HEADER. PATIENT HAS A WALKER, SHOWER CHAIR, CANE. PT VERBALIZED INSURANCE IS PROVIDING A BI TRI OPERATOR TO ASSIST WITH CLEANING ONCE A MONTH FOR 8HRS. DENIES ANY OTHER EQUIPMENT/SERVICES. FEELS SAFE TO GO BACK HOME, BF ABLE TO ASSIST WITH TRANSPORTATION AND NEEDS NECESSARY. DISCUSSED MD RECOMMENDATIONS FOR SHORT TERM REHAB AT [facility], PT AGREEBLE, CONSENT SIGNED [facility]. DCP [facility] ONCE APPROVED. CM SENT ORDER, CLINICALS, PASRR TO [facility] AND [facility] VIA SECURE EMAIL. CM SPOKE TO [facility], WILL COME EVALUATE PT, AWARE PATIENT IS PT PT EVAL AT THIS TIME, CM TO SEND NOTES ONCE AVAILABLE, REP MADE AWARE DCP ONCE APPROVED VIA FACILITY VAN. PT PENDING APPROVAL AND ACCEPTANCE. PRIMARY NURSE JUAN MADE AWARE. DR BRADEN UPDATED. CM TO CONTINUE TO FOLLOW UP. Addendum: 06/09/24 at 1607 by MALACHI WEBSTER LVN CM Amended: Links added.
[2024-06-09] MEDS: atorVAStatin 40 MG TABLET PO SCH (20:21)
[2024-06-10] VITALS (8 sets, daily range): BP systolic 127–152; BP diastolic 53–83; PULSE 54–61; RESP 15–18; TEMP 97.6–98.4; O2SAT 97
[2024-06-10 05:05] LABS: HEMATOCRIT 28.8 % (36-48); MEAN CORPUSCULAR HEMOGLOBIN 31.7 pg (27.0-33.0); MEAN CORPUSCULAR VOLUME 93.2 fL (79-99); RED BLOOD CELL COUNT(AUTO) 3.09 MIL/uL (4.00-5.50); RED CELL DISTRIBUTION WIDTH 12.6 % (11.0-15.5); WHITE BLOOD COUNT (AUTO) 11.5 K/uL (4.8-10.8)
[2024-06-10 05:13] LABS: CREATININE 1.1 mg/dL (0.5-1.0); POTASSIUM 3.7 mmol/L (3.5-5.1)
[2024-06-10] MEDS: PoTASSium chloRIDE 20MEQ ER 20 MEQ ERTAB PO PRN (05:53)
--- NOTE | 2024-06-10 08:21 | PN ---
Ortho postop day one. Patient this morning is awake alert and oriented. She is seated at the bedside enjoying her breakfast. Reporting little to no pain. Vital signs have remained stable. Afebrile. Laboratory results reviewed. Noted to have a drop in hemoglobin and hematocrit as expected after total knee arthroplasty. Patient is asymptomatic we will address per protocol as necessary. Jin bandage has been removed and the dressing is intact to the anterior joint. Gastrocnemius a soft nontender. Negative Homans. She is seated alternating extension and flexion with a footstool. Operative findings discussed with the patient. Voiding on her own without difficulty. Performing incentive spirometry as instructed. Patient progress with therapy yesterday ambulating 30 ft in the morning and 30 ft in the afternoon. Anticipated discharge goal is [place]. Assessment: Status post left total knee arthroplasty. Asymptomatic acute postoperative blood loss anemia. Plan: Continue with Dr. Headley's total knee arthroplasty protocol and discharge planning. Asymptomatic acute postoperative blood loss anemia addressed with the protocol as necessary Vitals/Labs Vital Signs Date Time Temp Pulse Resp B/P (MAP) Pulse Ox O2 Delivery O2 Flow Rate FiO2 06/10/24 07:41 98.4 57 15 148/60 97 Room Air 0.0 06/09/24 20:00 32 Laboratory Tests 06/10/24 04:43 Medications Current Medications Cefazolin Sodium 2 gm STK-MED ONCE .ROUTE Last administered on 06/09/24at 07:30; Start 06/09/24 at 06:19; Stop 06/09/24 at 06:24; Status DC Lactated Ringer's 1,000 ml @ As Directed STK-MED ONCE IV Last administered on 06/09/24at 06:52; Start 06/09/24 at 06:19; Stop 06/09/24 at 06:24; Status DC Acetaminophen 100 ml @ As Directed STK-MED ONCE .ROUTE; Start 06/09/24 at 06:40; Stop 06/09/24 at 06:46; Status DC Famotidine 20 mg STK-MED ONCE IV; Start 06/09/24 at 06:40; Stop 06/09/24 at 06:46; Status DC Ropivacaine 150 mg STK-MED ONCE .ROUTE; Start 06/09/24 at 06:41; Stop 06/09/24 at 06:46; Status DC Ketamine HCl 50 mg STK-MED ONCE .ROUTE; Start 06/09/24 at 06:41; Stop 06/09/24 at 06:46; Status DC Ketorolac Tromethamine 30 mg STK-MED ONCE .ROUTE; Start 06/09/24 at 06:49; Stop 06/09/24 at 06:49; Status DC Lidocaine HCl 1 ml STK-MED ONCE IJ; Start 06/09/24 at 06:49; Stop 06/09/24 at 06:50; Status DC Ropivacaine 150 mg STK-MED ONCE .ROUTE; Start 06/09/24 at 06:49; Stop 06/09/24 at 06:50; Status DC Propofol 200 mg STK-MED ONCE IV; Start 06/09/24 at 06:49; Stop 06/09/24 at 06:50; Status DC Rocuronium Giltner 50 mg STK-MED ONCE .ROUTE; Start 06/09/24 at 06:50; Stop 06/09/24 at 06:50; Status DC Fentanyl Citrate 100 mcg STK-MED ONCE .ROUTE; Start 06/09/24 at 06:50; Stop 06/09/24 at 06:50; Status DC Tranexamic Acid 1,000 mg STK-MED ONCE .ROUTE Last administered on 06/09/24at 07:35; Start 06/09/24 at 07:05; Stop 06/09/24 at 07:07; Status DC Sodium Chloride 1,000 ml @ 100 mls/hr Q10H IV Last administered on 06/09/24at 11:09; Start 06/09/24 at 07:30; Stop 06/10/24 at 07:30; Status DC Polyethylene Glycol 17 gm DAILY PO; Start 06/09/24 at 09:00; Stop 07/09/24 at 08:59 Bisacodyl 10 mg DAILY PRN RC; Start 06/12/24 at 07:30; Stop 07/12/24 at 07:29 Aspirin 325 mg BID PO Last administered on 06/09/24at 20:19; Start 06/09/24 at 09:00; Stop 07/09/24 at 08:59 Ketorolac Tromethamine 15 mg Q6H PRN IV; Start 06/10/24 at 07:30; Stop 06/14/24 at 07:29 Ferrous Fumarate 324 mg DAILY PRN PO; Start 06/09/24 at 07:30; Stop 07/09/24 at 07:29 Ondansetron HCl 4 mg Q6H PRN IVP; Start 06/09/24 at 07:30; Stop 07/09/24 at 07:29 Calcium Carbonate 500 mg Q12H PRN PO; Start 06/09/24 at 07:30; Stop 07/09/24 at 07:29 Cefazolin Sodium 2 gm Q8H IVP; Start 06/09/24 at 12:30; Stop 06/09/24 at 12:39; Status DC Cyclobenzaprine HCl 5 mg Q8H PRN PO; Start 06/09/24 at 07:30; Stop 07/09/24 at 07:29 Gabapentin 100 mg TID PO Last administered on 06/09/24at 20:20; Start 06/09/24 at 09:00; Stop 07/09/24 at 08:59 Ketorolac Tromethamine 15 mg Q8H IV Last administered on 06/10/24at 00:02; Start 06/09/24 at 07:30; Stop 06/09/24 at 23:31; Status DC Docusate Sodium 100 mg BID PO Last administered on 06/09/24at 20:21; Start 06/09/24 at 09:00; Stop 07/09/24 at 08:59 Potassium Chloride 100 ml @ 100 mls/hr AD PRN IV; Start 06/09/24 at 07:30; Stop 07/09/24 at 07:29 Potassium Chloride 20 meq AD PRN PO; Start 06/09/24 at 07:30; Stop 07/09/24 at 07:29 Potassium Chloride 20 meq AD PRN PO Last administered on 06/10/24at 05:53; Start 06/09/24 at 07:30; Stop 07/09/24 at 07:29 Tramadol HCl 50 mg Q6H PRN PO; Start 06/09/24 at 07:30; Stop 06/14/24 at 07:29 Acetaminophen/ Hydrocodone Bitart Q4H PRN PO; Start 06/09/24 at 07:30; Stop 06/14/24 at 07:29 Amlodipine Besylate 5 mg BID PO Last administered on 06/09/24at 20:21; Start 06/09/24 at 09:00; Stop 07/09/24 at 08:59 Home Med (Anastrozole (Arimidex) 1 MG) DAILY PO; Start 06/09/24 at 09:00; Stop 07/09/24 at 08:59 Home Med (Azelastine HCl 1 SPRAY) AM NASAL; Start 06/09/24 at 09:00; Stop 07/09/24 at 08:59 Losartan Potassium 100 mg DAILY PO; Start 06/09/24 at 09:00; Stop 07/09/24 at 08:59 Home Med (Polymyxin B Sulf/ Trimethop... Q3H OP; Start 06/09/24 at 08:00; Stop 07/09/24 at 07:59 Atorvastatin Calcium 80 mg HS PO Last administered on 06/09/24at 20:21; Start 06/09/24 at 21:00; Stop 07/09/24 at 20:59 Home Med (Sodium Fluoride (Previde... DAILY PO; Start 06/09/24 at 09:00; Stop 07/09/24 at 08:59 Home Med ([Hypromellose] 1 DROP) BID OU; Start 06/09/24 at 09:00; Stop 07/09/24 at 08:59 Ondansetron HCl 4 mg STK-MED ONCE .ROUTE; Start 06/09/24 at 07:22; Stop 06/09/24 at 07:28; Status DC Dexamethasone Sodium Phosphate 10 mg STK-MED ONCE .ROUTE; Start 06/09/24 at 07:22; Stop 06/09/24 at 07:28; Status DC Glycopyrrolate 1 mg STK-MED ONCE .ROUTE; Start 06/09/24 at 08:48; Stop 06/09/24 at 08:48; Status DC Neostigmine Methylsulfate 10 mg STK-MED ONCE IV; Start 06/09/24 at 08:48; Stop 06/09/24 at 08:48; Status DC Ketorolac Tromethamine 15 mg STK-MED ONCE .ROUTE; Start 06/09/24 at 09:30; Stop 06/09/24 at 09:30; Status DC Cefazolin Sodium 2 gm Q8H IVP Last administered on 06/10/24at 00:01; Start 06/09/24 at 15:30; Stop 06/09/24 at 23:31; Status DC HAO HUI DATABASE PROGRAMMER Jun 10, 2024 08:21
[2024-06-10] MEDS: HYDROcodone/APAP 5/325 1 TAB TABLET PO PRN (08:24)
[2024-06-10] MEDS: ketOROlac 15MG/ML VIAL (15MG/ML) IV PRN (12:09)
[2024-06-11 04:30] VITALS: BP 150/71; PULSE 18; RESP 60; TEMP 98.2
[2024-06-11 07:49] VITALS: BP 152/61; PULSE 58; RESP 17; TEMP 98.5
--- NOTE | 2024-06-11 10:28 | PN ---
Ortho postop day two. Patient reports pain is tolerable. States mostly pain is in the quadriceps muscle. Denies dizziness. Denies chest pain, shortness of breath, nausea, vomiting, or diarrhea. Reports voiding and passing gas. No BM. Tolerating diet. Vital signs stable, afebrile Alert and oriented x3 sitting at bedside in chair, no acute distress Nonlabored breathing Left lower extremity dressing clean dry and intact Calf soft nontender Able to get within 5 of full extension without pushing, dangling in the chair at about 85 flexion Ambulated with physical therapy 60 ft/60 ft in the a.m./p.m. yesterday. Discharge planning is for [facility]. A/P: Postop day two status post left total knee arthroplasty making good progres s with PT. Asymptomatic acute postoperative blood loss anemia. Patient is medically stable for discharge once insurance authorization obtained. -continued work with physical therapy while in house -continue routine postoperative care - pain management, incentive spirometry and bowel protocol -continue with discharge planning Vitals/Labs Vital Signs Date Time Temp Pulse Resp B/P (MAP) Pulse Ox O2 Delivery O2 Flow Rate FiO2 06/11/24 07:49 98.4 58 17 152/61 99 Room Air 06/10/24 22:15 0 21 Medications Current Medications Cefazolin Sodium 2 gm STK-MED ONCE .ROUTE Last administered on 06/09/24at 07:30; Start 06/09/24 at 06:19; Stop 06/09/24 at 06:24; Status DC Lactated Ringer's 1,000 ml @ As Directed STK-MED ONCE IV Last administered on 06/09/24at 06:52; Start 06/09/24 at 06:19; Stop 06/09/24 at 06:24; Status DC Acetaminophen 100 ml @ As Directed STK-MED ONCE .ROUTE; Start 06/09/24 at 06:40; Stop 06/09/24 at 06:46; Status DC Famotidine 20 mg STK-MED ONCE IV; Start 06/09/24 at 06:40; Stop 06/09/24 at 06:46; Status DC Ropivacaine 150 mg STK-MED ONCE .ROUTE; Start 06/09/24 at 06:41; Stop 06/09/24 at 06:46; Status DC Ketamine HCl 50 mg STK-MED ONCE .ROUTE; Start 06/09/24 at 06:41; Stop 06/09/24 at 06:46; Status DC Ketorolac Tromethamine 30 mg STK-MED ONCE .ROUTE; Start 06/09/24 at 06:49; Stop 06/09/24 at 06:49; Status DC Lidocaine HCl 1 ml STK-MED ONCE IJ; Start 06/09/24 at 06:49; Stop 06/09/24 at 06:50; Status DC Ropivacaine 150 mg STK-MED ONCE .ROUTE; Start 06/09/24 at 06:49; Stop 06/09/24 at 06:50; Status DC Propofol 200 mg STK-MED ONCE IV; Start 06/09/24 at 06:49; Stop 06/09/24 at 06:50; Status DC Rocuronium Keiser 50 mg STK-MED ONCE .ROUTE; Start 06/09/24 at 06:50; Stop 06/09/24 at 06:50; Status DC Fentanyl Citrate 100 mcg STK-MED ONCE .ROUTE; Start 06/09/24 at 06:50; Stop 06/09/24 at 06:50; Status DC Tranexamic Acid 1,000 mg STK-MED ONCE .ROUTE Last administered on 06/09/24at 07:35; Start 06/09/24 at 07:05; Stop 06/09/24 at 07:07; Status DC Sodium Chloride 1,000 ml @ 100 mls/hr Q10H IV Last administered on 06/09/24at 11:09; Start 06/09/24 at 07:30; Stop 06/10/24 at 07:30; Status DC Polyethylene Glycol 17 gm DAILY PO Last administered on 06/11/24at 08:44; Start 06/09/24 at 09:00; Stop 07/09/24 at 08:59 Bisacodyl 10 mg DAILY PRN RC; Start 06/12/24 at 07:30; Stop 07/12/24 at 07:29 Aspirin 325 mg BID PO Last administered on 06/11/24at 08:45; Start 06/09/24 at 09:00; Stop 07/09/24 at 08:59 Ketorolac Tromethamine 15 mg Q6H PRN IV Last administered on 06/10/24at 12:09; Start 06/10/24 at 07:30; Stop 06/14/24 at 07:29 Ferrous Fumarate 324 mg DAILY PRN PO; Start 06/09/24 at 07:30; Stop 07/09/24 at 07:29 Ondansetron HCl 4 mg Q6H PRN IVP; Start 06/09/24 at 07:30; Stop 07/09/24 at 07:29 Calcium Carbonate 500 mg Q12H PRN PO; Start 06/09/24 at 07:30; Stop 07/09/24 at 07:29 Cefazolin Sodium 2 gm Q8H IVP; Start 06/09/24 at 12:30; Stop 06/09/24 at 12:39; Status DC Cyclobenzaprine HCl 5 mg Q8H PRN PO; Start 06/09/24 at 07:30; Stop 07/09/24 at 07:29 Gabapentin 100 mg TID PO Last administered on 06/11/24at 08:45; Start 06/09/24 at 09:00; Stop 07/09/24 at 08:59 Ketorolac Tromethamine 15 mg Q8H IV Last administered on 06/10/24at 00:02; Start 06/09/24 at 07:30; Stop 06/09/24 at 23:31; Status DC Docusate Sodium 100 mg BID PO Last administered on 06/11/24at 08:45; Start 06/09/24 at 09:00; Stop 07/09/24 at 08:59 Potassium Chloride 100 ml @ 100 mls/hr AD PRN IV; Start 06/09/24 at 07:30; Stop 07/09/24 at 07:29 Potassium Chloride 20 meq AD PRN PO; Start 06/09/24 at 07:30; Stop 07/09/24 at 07:29 Potassium Chloride 20 meq AD PRN PO Last administered on 06/10/24at 12:10; Start 06/09/24 at 07:30; Stop 07/09/24 at 07:29 Tramadol HCl 50 mg Q6H PRN PO; Start 06/09/24 at 07:30; Stop 06/14/24 at 07:29 Acetaminophen/ Hydrocodone Bitart Q4H PRN PO Last administered on 06/11/24at 03:02; Start 06/09/24 at 07:30; Stop 06/14/24 at 07:29 Amlodipine Besylate 5 mg BID PO Last administered on 06/11/24at 08:45; Start 06/09/24 at 09:00; Stop 07/09/24 at 08:59 Home Med (Anastrozole (Arimidex) 1 MG) DAILY PO Last administered on 06/11/24at 08:47; Start 06/09/24 at 09:00; Stop 07/09/24 at 08:59 Home Med (Azelastine HCl 1 SPRAY) AM NASAL Last administered on 06/11/24at 08:48; Start 06/09/24 at 09:00; Stop 07/09/24 at 08:59 Losartan Potassium 100 mg DAILY PO Last administered on 06/11/24at 08:45; Start 06/09/24 at 09:00; Stop 07/09/24 at 08:59 Home Med (Polymyxin B Sulf/ Trimethop... Q3H OP Last administered on 06/11/24at 08:48; Start 06/09/24 at 08:00; Stop 07/09/24 at 07:59 Atorvastatin Calcium 80 mg HS PO Last administered on 06/10/24at 20:54; Start 06/09/24 at 21:00; Stop 07/09/24 at 20:59 Home Med (Sodium Fluoride (Previde... DAILY PO Last administered on 06/11/24at 08:47; Start 06/09/24 at 09:00; Stop 07/09/24 at 08:59 Home Med ([Hypromellose] 1 DROP) BID OU Last administered on 06/11/24at 08:48; Start 06/09/24 at 09:00; Stop 07/09/24 at 08:59 Ondansetron HCl 4 mg STK-MED ONCE .ROUTE; Start 06/09/24 at 07:22; Stop 06/09/24 at 07:28; Status DC Dexamethasone Sodium Phosphate 10 mg STK-MED ONCE .ROUTE; Start 06/09/24 at 07:22; Stop 06/09/24 at 07:28; Status DC Glycopyrrolate 1 mg STK-MED ONCE .ROUTE; Start 06/09/24 at 08:48; Stop 06/09/24 at 08:48; Status DC Neostigmine Methylsulfate 10 mg STK-MED ONCE IV; Start 06/09/24 at 08:48; Stop 06/09/24 at 08:48; Status DC Ketorolac Tromethamine 15 mg STK-MED ONCE .ROUTE; Start 06/09/24 at 09:30; Stop 06/09/24 at 09:30; Status DC Cefazolin Sodium 2 gm Q8H IVP Last administered on 06/10/24at 00:01; Start 06/09/24 at 15:30; Stop 06/09/24 at 23:31; Status DC AB BRADEN MD Jun 11, 2024 10:28
[2024-06-11 11:09] VITALS: O2SAT 99
[2024-06-11 11:19] VITALS: BP 152/56; PULSE 61; RESP 16; TEMP 98.4
[2024-06-11 15:55] VITALS: BP 148/76; PULSE 60; RESP 16; TEMP 97.8
[2024-06-11 20:00] VITALS: BP 138/64; PULSE 63; RESP 18; TEMP 98.6; O2SAT 99
[2024-06-12] VITALS (7 sets, daily range): BP systolic 135–164; BP diastolic 52–63; PULSE 55–62; RESP 16–18; TEMP 98–98.9; O2SAT 95
[2024-06-12] MEDS ORDERED: BisaCODYL 10 MG SUPP.RECT RC PRN (07:30)
[2024-06-12] MEDS: FERROUS FUMARATE 324 MG TABLET PO PRN (09:04)
[2024-06-12] MEDS: CYCLOBENZAPRINE HCL 10 MG TABLET PO PRN (21:22)
[2024-06-13 03:49] VITALS: BP 125/42; PULSE 54; RESP 16; TEMP 98.3
[2024-06-13 08:00] VITALS: BP 144/58; PULSE 57; RESP 18; TEMP 98; O2SAT 95
[2024-06-13 12:00] VITALS: BP 145/62; PULSE 60; RESP 18; TEMP 98.6
--- NOTE | 2024-06-13 12:31 | PN ---
Ortho postop day four. Patient wondering when she will be discharged to shelter facility. Patient reports pain is tolerable. Ambulating with PT. Denies dizziness. Denies chest pain, shortness of breath, nausea, vomiting, or diarrhea. Reports voiding and passing gas. Tolerating diet. Vital signs stable, afebrile Alert and oriented x3 sitting at bedside in chair, no acute distress Nonlabored breathing Left lower extremity dressing clean dry and intact Calf soft nontender Able to get within 5 of full extension without pushing, dangling in the chair at about 85 flexion Ambulated with physical therapy 60 ft/60 ft in the a.m./p.m. yesterday. Discharge planning is for [facility]. A/P: Postop day 4 status post left total knee arthroplasty making good progress with PT. Asymptomatic acute postoperative blood loss anemia. Patient is medically stable for discharge once insurance authorization obtained. -continued work with physical therapy while in house -continue routine postoperative care - pain management, incentive spirometry and bowel protocol -continue with discharge planning Vitals/Labs Vital Signs Date Time Temp Pulse Resp B/P (MAP) Pulse Ox O2 Delivery O2 Flow Rate FiO2 06/13/24 08:00 98.1 57 18 144/58 95 Room Air 21 06/12/24 08:00 0 Medications Current Medications Cefazolin Sodium 2 gm STK-MED ONCE .ROUTE Last administered on 06/09/24at 07:30; Start 06/09/24 at 06:19; Stop 06/09/24 at 06:24; Status DC Lactated Ringer's 1,000 ml @ As Directed STK-MED ONCE IV Last administered on 06/09/24at 06:52; Start 06/09/24 at 06:19; Stop 06/09/24 at 06:24; Status DC Acetaminophen 100 ml @ As Directed STK-MED ONCE .ROUTE; Start 06/09/24 at 06:40; Stop 06/09/24 at 06:46; Status DC Famotidine 20 mg STK-MED ONCE IV; Start 06/09/24 at 06:40; Stop 06/09/24 at 06:46; Status DC Ropivacaine 150 mg STK-MED ONCE .ROUTE; Start 06/09/24 at 06:41; Stop 06/09/24 at 06:46; Status DC Ketamine HCl 50 mg STK-MED ONCE .ROUTE; Start 06/09/24 at 06:41; Stop 06/09/24 at 06:46; Status DC Ketorolac Tromethamine 30 mg STK-MED ONCE .ROUTE; Start 06/09/24 at 06:49; Stop 06/09/24 at 06:49; Status DC Lidocaine HCl 1 ml STK-MED ONCE IJ; Start 06/09/24 at 06:49; Stop 06/09/24 at 06:50; Status DC Ropivacaine 150 mg STK-MED ONCE .ROUTE; Start 06/09/24 at 06:49; Stop 06/09/24 at 06:50; Status DC Propofol 200 mg STK-MED ONCE IV; Start 06/09/24 at 06:49; Stop 06/09/24 at 06:50; Status DC Rocuronium [place] 50 mg STK-MED ONCE .ROUTE; Start 06/09/24 at 06:50; Stop 06/09/24 at 06:50; Status DC Fentanyl Citrate 100 mcg STK-MED ONCE .ROUTE; Start 06/09/24 at 06:50; Stop 06/09/24 at 06:50; Status DC Tranexamic Acid 1,000 mg STK-MED ONCE .ROUTE Last administered on 06/09/24at 07:35; Start 06/09/24 at 07:05; Stop 06/09/24 at 07:07; Status DC Sodium Chloride 1,000 ml @ 100 mls/hr Q10H IV Last administered on 06/09/24at 11: 09; Start 06/09/24 at 07:30; Stop 06/10/24 at 07:30; Status DC Polyethylene Glycol 17 gm DAILY PO Last administered on 06/13/24at 09:33; Start 06/09/24 at 09:00; Stop 07/09/24 at 08:59 Bisacodyl 10 mg DAILY PRN RC; Start 06/12/24 at 07:30; Stop 07/12/24 at 07:29 Aspirin 325 mg BID PO Last administered on 06/13/24at 09:32; Start 06/09/24 at 09:00; Stop 07/09/24 at 08:59 Ketorolac Tromethamine 15 mg Q6H PRN IV Last administered on 06/12/24at 23:52; Start 06/10/24 at 07:30; Stop 06/14/24 at 07:29 Ferrous Fumarate 324 mg DAILY PRN PO Last administered on 06/12/24at 09:04; Start 06/09/24 at 07:30; Stop 07/09/24 at 07:29 Ondansetron HCl 4 mg Q6H PRN IVP; Start 06/09/24 at 07:30; Stop 07/09/24 at 07:29 Calcium Carbonate 500 mg Q12H PRN PO; Start 06/09/24 at 07:30; Stop 07/09/24 at 07:29 Cefazolin Sodium 2 gm Q8H IVP; Start 06/09/24 at 12:30; Stop 06/09/24 at 12:39; Status DC Cyclobenzaprine HCl 5 mg Q8H PRN PO Last administered on 06/12/24at 21:22; Start 06/09/24 at 07:30; Stop 07/09/24 at 07:29 Gabapentin 100 mg TID PO Last administered on 06/13/24at 09:33; Start 06/09/24 at 09:00; Stop 07/09/24 at 08:59 Ketorolac Tromethamine 15 mg Q8H IV Last administered on 06/10/24at 00:02; Start 06/09/24 at 07:30; Stop 06/09/24 at 23:31; Status DC Docusate Sodium 100 mg BID PO Last administered on 06/13/24at 09:33; Start 06/09/24 at 09:00; Stop 07/09/24 at 08:59 Potassium Chloride 100 ml @ 100 mls/hr AD PRN IV; Start 06/09/24 at 07:30; Stop 07/09/24 at 07:29 Potassium Chloride 20 meq AD PRN PO; Start 06/09/24 at 07:30; Stop 07/09/24 at 07:29 Potassium Chloride 20 meq AD PRN PO Last administered on 06/10/24at 12:10; Start 06/09/24 at 07:30; Stop 07/09/24 at 07:29 Tramadol HCl 50 mg Q6H PRN PO; Start 06/09/24 at 07:30; Stop 06/14/24 at 07:29 Acetaminophen/ Hydrocodone Bitart Q4H PRN PO Last administered on 06/13/24at 09:32; Start 06/09/24 at 07:30; Stop 06/14/24 at 07:29 Amlodipine Besylate 5 mg BID PO Last administered on 06/13/24at 09:33; Start 06/09/24 at 09:00; Stop 07/09/24 at 08:59 Home Med (Anastrozole (Arimidex) 1 MG) DAILY PO Last administered on 06/12/24at 09 :10; Start 06/09/24 at 09:00; Stop 07/09/24 at 08:59 Home Med (Azelastine HCl 1 SPRAY) AM NASAL Last administered on 06/12/24at 09:10; Start 06/09/24 at 09:00; Stop 07/09/24 at 08:59 Losartan Potassium 100 mg DAILY PO Last administered on 06/13/24at 09:32; Start 06/09/24 at 09:00; Stop 07/09/24 at 08:59 Home Med (Polymyxin B Sulf/ Trimethop... Q3H OP Last administered on 06/12/24at 21:27; Start 06/09/24 at 08:00; Stop 07/09/24 at 07:59 Atorvastatin Calcium 80 mg HS PO Last administered on 06/12/24at 21:21; Start 06/09/24 at 21:00; Stop 07/09/24 at 20:59 Home Med (Sodium Fluoride (Previde... DAILY PO Last administered on 06/12/24at 09:10; Start 06/09/24 at 09:00; Stop 07/09/24 at 08:59 Home Med ([Hypromellose] 1 DROP) BID OU Last administered on 06/12/24at 21:27; Start 06/09/24 at 09:00; Stop 07/09/24 at 08:59 Ondansetron HCl 4 mg STK-MED ONCE .ROUTE; Start 06/09/24 at 07:22; Stop 06/09/24 at 07:28; Status DC Dexamethasone Sodium Phosphate 10 mg STK-MED ONCE .ROUTE; Start 06/09/24 at 07:22; Stop 06/09/24 at 07:28; Status DC Glycopyrrolate 1 mg STK-MED ONCE .ROUTE; Start 06/09/24 at 08:48; Stop 06/09/24 at 08:48; Status DC Neostigmine Methylsulfate 10 mg STK-MED ONCE IV; Start 06/09/24 at 08:48; Stop 06/09/24 at 08:48; Status DC Ketorolac Tromethamine 15 mg STK-MED ONCE .ROUTE; Start 06/09/24 at 09:30; Stop 06/09/24 at 09:30; Status DC Cefazolin Sodium 2 gm Q8H IVP Last administered on 06/10/24at 00:01; Start 06/09/24 at 15:30; Stop 06/09/24 at 23:31; Status DC AB BRADEN MD Jun 13, 2024 12:31
--- NOTE | 2024-06-13 12:35 | DS ---
Discharge Summary Hospital Course Summary: The patient was admitted to the hospital postoperatively on 06/09/2024 after undergoing left total knee arthroplasty. They did well with routine postoperative pain control. They worked well with physical therapy. Patient developed some acute blood loss anemia but remained asymptomatic from this. The hospital course was otherwise uncomplicated. They were subsequently able to be discharged on postoperative day 4 once discharge arrangements were made with [facility]. Garage Hand(s): None Procedure(s): Left total knee arthroplasty, 06/09/2024 Assessment/Plan: ASSESSMENT: POD 4 s/p L TKA PLAN: See discharge instructions Discharge Instructions: Begin working with physical therapy at the facility. Dressing may be removed 06/12/2024 and left open to air. Showers ok allowing soap and water to run over the wound. Pat dry. Do not submerge wound in tub/pool. Do not apply ointments. Do not apply Betadine. Do not apply peroxide. Ice packs to decrease pain/swelling. Prescriptions have been sent to the pharmacy: *[place] 5/325mg 1-2 tab every 6 hours as needed for severe pain. (please call for refills) Cyclobenzaprine 5mg 1 tab every 8 hours as needed for muscle spasm pain. Gabapentin 100mg 1 tab every 8 hours (may discontinue if drowsy). Colace 100mg 1 tab orally twice a day as needed for constipation. Aspirin 325mg for 30 days to prevent blood clots. Call for a follow-up appointment in 2-3 weeks at [facility]. Home Medications: Active Scripts Clopidogrel Bisulfate (Plavix) 75 Mg Tablet, 75 MG PO DAILY for 30 Days, #30 TAB Prov:EILEEN MEAD NP 02/23/23 Reported Medications Azelastine HCl (Azelastine HCl) 137 Mcg (0.1 %) [place].pump, 1 SPRAY NS AM for 30 Days, #30 ML 0 Refills 06/06/24 Polymyxin B Sulf/Trimethoprim (Polymyxin B-Tmp Eye Drops) 10,000 Unit-1 Mg/Ml Drops, 1 DROP OP Q3H for 7 Days, #10 ML 0 Refills 25 Sodium Fluoride (Prevident) 1.1 % Sodium Fluoride Paste..ml., 100 ML DT DAILY 06/06/24 Meloxicam (Meloxicam) 15 Mg Tablet, 1 TAB PO HS for 30 Days, #30 TAB 0 Refills 06/06/24 [Hypromellose] No Conflict Check, 1 DROP OU BID 10/08/23 Amlodipine Besylate (Amlodipine Besylate) 5 Mg Tablet, 5 MG PO BID, TAB 10/08/23 Olmesartan Medoxomil (Olmesartan Medoxomil) 40 Mg Tablet, 40 MG PO DAILY, TAB 10/08/23 Rosuvastatin Calcium (Rosuvastatin Calcium) 40 Mg Tablet, 40 MG PO HS, TAB 10/08/23 Gabapentin (Gabapentin) 100 Mg Capsule, 100 MG PO BID, CAP 10/08/23 Anastrozole (Arimidex) 1 Mg Tab, 1 MG PO DAILY, TAB 02/22/23 Discontinued Reported Medications Vitamin B Complex (B Complex) 1 Each Tablet, 1 EACH PO DAILY, TAB 10/08/23 Cholecalciferol (Vitamin D3) (Vitamin D3) 50 Mcg (2000 Unit) Capsule, 50 MCG PO BID, CAP 10/08/23 Calcium Carbonate (Calcium) 600 Mg Calcium (1500 Mg) Tablet, 600 MG PO DAILY, TAB 10/08/23 Omeprazole (Omeprazole) 20 Mg Tablet.dr, 20 MG PO DAILY, TAB 02/22/23 Discontinued Scripts Cyclobenzaprine HCl (Cyclobenzaprine HCl) 10 Mg Tablet, 5 MG PO Q8H PRN for MUSCLE SPASMS, #45 TAB 0 Refills Prov:AB BRADEN MD 10/12/23 Docusate Sodium (Colace) 100 Mg Capsule, 100 MG PO BID for 30 Days, #60 CAP 0 Refills Prov:AB BRADEN MD 10/12/23 Hydrocodone/Acetaminophen (Hydrocodon-Acetaminophen 5-325) 5 Mg-325 Mg Tablet, 1 TAB PO Q4H PRN for pain (4-10), #42 TAB 0 Refills Prov:AB BRADEN MD 10/12/23 AB BRADEN MD Jun 13, 2024 12:35
[2024-06-13] MEDS ORDERED: HYDR-4060 PO ×2 (12:38→17:19)
[2024-06-13] MEDS ORDERED: GABA100C PO (12:38)
[2024-06-13] MEDS ORDERED: CYCL-309 PO (12:38)
--- NOTE | 2024-06-13 12:58 | NUR ---
Pt continues to require assistance with management of operated LE in and out of bed. ROM continues to be limited. Pt to benefit from continued PT in a rehab setting before discharging home
[2024-06-13 16:00] VITALS: BP 124/54; PULSE 63; RESP 18; TEMP 99.5
--- NOTE | 2024-06-13 16:34 | NUR ---
[facility] NOTE: WOH DENIAL, PENDING TO SECURE CM SPOKE TO TOBIAS W/TRACEY JONES, PT DENIED AFTER PEER TO PEER. CM SPOKE TO PT MADE AWARE OF ABOVE, GIVEN OPTIONS, HOME W/HH VS OUTPT PT, PT AGREEABLE FOR HOME W/HH. CONSENT OBTAINED SMOOTH FOR [facility]. DR BRADEN MADE AWARE VIA SECURE TEXT, AGREEABLE W/HOME W/HH. ORDER ENTERED. CM SENT FORWARDED PACKET TO [facility] VIA SECURE EMAIL. CM SPOKE TO JENNIFER, RECEIVED PACKET AND CURRENTLY REVIEWING. PENDING APPROVAL AND ACCEPTANCE. PRIMARY NURSE JULEE MADE AWARE. CM TO CONTINUE TO FOLLOW UP. Addendum: 06/13/24 at 1644 by MALACHI WEBSTER LVN CM Amended: Links added.
[2024-06-13] MEDS ORDERED: DOCU-116 PO (17:19)
[2024-06-13] MEDS: traMADol HCL 50 MG TABLET PO PRN (18:16)
== END 2024-06-13 20:33 | disposition home or self-care (01) ==
LOC: DAH 05:45 → DAHIP 05:46 → DAH 05:46 → 4DH 10:10
PROVIDERS: ADMIT Student in an Organized Health Care Education/Training Program; ATTEND Student in an Organized Health Care Education/Training Program
DX: M17.12 Unilateral primary osteoarthritis, left knee (principal); M25.562 Pain in left knee; I10 Essential (primary) hypertension; F32.9 Major depressive disorder, single episode, unspecified; E78.5 Hyperlipidemia, unspecified; E04.1 Nontoxic single thyroid nodule; J30.2 Other seasonal allergic rhinitis; Z79.899 Other long term (current) drug therapy; Z98.890 Other specified postprocedural states
CPT/HCPCS: 82040; 80048 ×2; 85025; 85610; 85730; 87086; 84134; 86140; 81001; 36415 ×2; 87641; 27447; 64447; 96376 ×4; 96365; 96375; 73560; 97161; 97116 ×10; 97530 ×13; 96366; 85027; G0378 ×99; A4663; J7120; J3490 ×6; J3010; J1100; J2704; J2405; J1885 ×8; J2710; J2795 ×2; J0690 ×3; C1713 ×2; C1776 ×2; A4649 ×2; A6255; A5120; A4215; A4223 ×2; A4222; A4221; A4216